=== PATIENT | male | born 1945 | race Caucasian/White ===

== ENCOUNTER → 2022-01-23 | Outpatient (CLI) | payer MEDICARE, OTHER ==
[~2022-01-23] MED LIST: ASPIRIN CHEWABL81 MG PO; AUGMENTIN 875-1 EACH PO; DOXYCYCLINE MO100 MG PO; FLOMAX0.4 MG PO; MONOPRIL TAB 1010 MG PO; ZOCOR20 MG PO
== END ==
LOC: LAB 12:37
PROVIDERS: Nurse Practitioner Family
DX: I10 Essential (primary) hypertension (principal)
CPT/HCPCS: 36415; 80048

== ENCOUNTER → 2022-01-26 | Outpatient (CLI) | payer MEDICARE, OTHER | LOC: KOH-I 14:37 | DX: R31.9 Hematuria, unspecified (principal); R79.89 Other specified abnormal findings of blood chemistry; N13.2 Hydronephrosis with renal and ureteral calculous obstruction | CPT/HCPCS: 74176; 76775 ==